=== PATIENT | female | born 1970 | race Caucasian/White ===

== ENCOUNTER → 2024-11-22 | Outpatient (CLI) | payer OTHER, SELFPAY ==
[2024-11-22 15:24] LABS: Absolute Lymphocyte Count 2.46 X10^3/uL (0.83-4.51); Absolute Neutrophil Count 6.3 X10^3/uL (2.0-7.7); Basophil# 0.06 X10^3/uL; Basophil% 0.6 % (0-1); Eosinophil# 0.19 X10^3/uL; Eosinophils% 1.9 % (0-5); Hematocrit 40.3 % (37-47); Hemoglobin 12.8 g/dL (12.0-15.0); Lymphocyte # 2.46 X10^3/ul (0.83-4.51); Mean Corp Hgb Conc 31.8 g/dL (32-36); Mean Corpuscular Hgb 28.8 pg (27.0-32.0); Mean Corpuscular Volume 90.6 fL (81-99); Mean Platelet Vol. 9.9 fl (6.2-12.0); Monocyte# 0.83 X10^3/uL; Monocyte% 8.4 % (0-10); NRBC Flagged by Analyzer 0 % (0-5); Neutrophil # 6.26 X10^3/uL (2.7-7.7); Neutrophil % 63.7 % (47-70); Platelet Count 353 K/mm3 (150-450); RBC Distribution Width CV 12.5 % (11.6-14.6); Red Blood Count 4.45 M/mm3 (4.2-5.4); White Blood Count 9.8 K/mm3 (4.4-11.0)
[2024-11-22 16:02] LABS: ALB/GLOB Ratio 1.2 RATIO (0.9-2.4); AST(SGOT) 17 U/L (15-37); Alanine Aminotransfer ALT/SGPT 40 U/L (13-56); Albumin, Serum 3.7 g/dL (3.2-5.0); Alkaline Phosphatase 69 U/L (45-117); Anion Gap 3 (5-15); BUN 14 mg/dL (7-18); BUN/Creat Ratio 18.8 RATIO (10-20); Calcium,Total 9.7 mg/dL (8.5-10.1); Chloride 109 mmol/L (98-107); Cholesterol 204 mg/dL (200); Creatinine, Serum 0.74 mg/dL (0.55-1.02); EST Glomerular Filtration Rate 86 mL/min (>60); Est Glom Filt Rate - Afr Amer 104 mL/min (>60); Globulin 3.1 g/dL (2.2-4.2); Glucose 108 mg/dL (74-106); High Density Lipoprotein 53 mg/dL; Potassium 3.9 mmol/L (3.5-5.1); Protein, Total 6.8 g/dL (6.4-8.2); Sodium Level 141 mmol/L (136-145); T4 Free Direct 0.83 ng/dL (0.76-1.46); Triglycerides 174 mg/dL; Very Low Density Lipoprotein 35 mg/dL (5-40)
== END | disposition home or self-care (01) ==
LOC: BIMLAB 13:42
PROVIDERS: PCP Internal Medicine; Referring Provider Internal Medicine; Visit Provider Internal Medicine
DX: Z00.00 Encounter for general adult medical examination without abnormal findings (principal); I10 Essential (primary) hypertension
CPT/HCPCS: 36415; 80053; 80061; 84439; 84443; 85025

== ENCOUNTER → 2024-12-02 | Outpatient (CLI) | payer OTHER, SELFPAY ==
--- NOTE | 2024-12-02 14:03 | STRESSREP_ITS ---
Stress Test Report Date: 12/02/2024 Procedure: Exercise tolerance test Indications: Abnormal EKG Consent: Per the patient Procedure: The patient exercised on a Sha protocol for 9 minutes achieving a peak heart rate of 153 bpm (93% predicted maximal heart rate) with a peak blood pressure 182/72 mmHg and a peak MET capacity of approximately 10.4 MET's. The baseline ECG demonstrated normal sinus rhythm. The peak exercise ECG demonstrated sinus tachycardia with about [address] depressions in the inferior and lateral leads. Later in the recovery phase there is about [address] depressions in the inferior and lateral leads.. [There were no cardiac dysrhythmias pretest, during exercise, or recovery]. The functional capacity was considered excellent for age. The patient had no complaint of chest discomfort during exercise or recovery. The examination was discontinued secondary to achieving target heart rate. Impression: 1. Technically adequate (percent predicted maximal heart rate greater than 85%) exercise tolerance test 2. Stress test is negative for exercise-induced chest pain. 3. Stress test test is borderline for exercise-induced EKG changes of ischemia. 4. Functional capacity is excellent for age This note was generated with Stereotax[employer] software. It may contain incorrect words, spelling, and punctuation that were not noted in checking the note before signing.
== END | disposition home or self-care (01) ==
LOC: CVS 11:27
PROVIDERS: PCP Internal Medicine; Referring Provider Internal Medicine; Visit Provider Internal Medicine
DX: R94.31 Abnormal electrocardiogram [ECG] [EKG] (principal)
CPT/HCPCS: 93017

== ENCOUNTER → 2024-12-09 | Outpatient (CLI) | payer OTHER, SELFPAY ==
--- NOTE | 2024-12-09 14:00 | ECHOD_ITS ---
Reason For Study: Abnormal Stress Test Procedure This was a 2D Doppler, Color Flow transthoracic echocardiogram. Exam performed in department. Left Ventricle Normal size and thickness. Mid cavitary false tendon noted. The left ventricular ejection fraction is 65 %. No evidence for diastolic dysfunction. Right Ventricle Normal right ventricle. Atria The left and right atria are normal. Mitral Valve Normal mitral valve. Tricuspid Valve Trivial tricuspid valve insufficiency. Normal pulmonary artery pressure. Aortic Valve Trisinus/trileaflet aortic valve. Pulmonic Valve The pulmonic valve is not well visualized. Great Vessels Normal sized aortic root. Pericardium/Pleural No pericardial effusion. MMode/2D Measurements & Calculations LVIDd: 4.3 cm IVSd: 0.99 cm Ao root diam: 3.0 cm LVIDs: 2.4 cm LVPWd: 0.90 cm RVDd: 3.7 cm FS: 43.4 % _ LAV(MOD-bp): 45.4 ml LVAd ap4: 25.2 cm2 SV(MOD-sp4): 39.8 ml LAV(MOD-bp) Indexed: 23.1 ml/m2 LVLd ap4: 7.4 cm SI(MOD-sp4): 20.2 ml/m2 LAV(MOD-sp2): 42.9 ml EDV(MOD-sp4): 68.6 ml LAV(MOD-sp4): 44.0 ml EDV(sp4-el): 73.3 ml LVAs ap4: 15.1 cm2 LVLs ap4: 6.5 cm ESV(MOD-sp4): 28.9 ml ESV(sp4-el): 29.7 ml EF(MOD-sp4): 58.0 % EF(sp4-el): 59.5 % _ SV(sp4-el): 43.6 ml LA A4 area: 17.0 cm2 LA dimension(2D): 3.8 cm _ RA A4 area: 14.8 cm2 TAPSE: 2.7 cm Time Measurements MV dec time: 0.32 sec Doppler Measurements & Calculations MV E max sudarshan: 61.8 cm/sec Lat Peak E' Sudarshan: 12.1 cm/sec Med Peak E' Sudrashan: 9.5 cm/sec MV A max sudarshan: 71.4 cm/sec E/E' lat: 5.1 E/E' med: 6.5 MV E/A: 0.87 _ MV V2 max: 85.4 cm/sec MV P1/2t max sudarshan: 76.5 cm/sec Ao V2 max: 155.6 cm/sec MV max P.9 mmHg MV P1/2t: 103.7 msec Ao max P.7 mmHg MV V2 mean: 46.9 cm/sec Ao V2 mean: 99.7 cm/sec MV mean P.0 mmHg MV dec slope: 216.0 cm/sec2 Ao mean P.7 mmHg MV V2 VTI: 24.3 cm MVA(P1/2t): 2.1 cm2 Ao V2 VTI: 29.0 cm AV (velocity ratio): 0.87 _ LV V1 max: 129.4 cm/sec TR max sudarshan: 250.0 cm/sec LV V1 max P.7 mmHg TR max P.0 mmHg LV V1 mean P.8 mmHg LV V1 mean: 92.0 cm/sec LV V1 VTI: 25.1 cm ECHO/Echo Complete Interpretation Summary The left ventricular ejection fraction is 65 %. Ordering Physician: Ewelina Morales Referring Physician: Rosalio Dickey Performed By: Kishore Gupta RCS
== END | disposition home or self-care (01) ==
PROVIDERS: PCP Internal Medicine; Referring Provider Internal Medicine Cardiovascular Disease; Visit Provider Internal Medicine Cardiovascular Disease
DX: R94.39 Abnormal result of other cardiovascular function study (principal)
CPT/HCPCS: 93306

== ENCOUNTER → 2024-12-27 | Outpatient (CLI) | payer OTHER, SELFPAY ==
--- NOTE | 2024-12-27 13:10 | CT_ITS ---
PROCEDURE: LIMITED CHEST CT CARDIAC ONLY with and without IV contrast. REASON FOR EXAM: Abnormal stress test. History of coronary artery disease. TECHNIQUE: Chest CT with intravenous contrast. CONTRAST: 68 mL of Isovue 370. COMPARISON: None. FINDINGS: Hardware: None. Lymph nodes: No mediastinal hilar or axillary lymphadenopathy. Heart and Vasculature: Normal heart size. No pericardial effusion. Atherosclerotic calcifications of the thoracic aorta. Pulmonary arteries are unremarkable. Lungs and Airways: The lungs are normally expanded and clear. Pleura: No pleural effusion. No pneumothorax. Upper Abdomen: Visualized portions of the upper abdominal viscera are unremarkable. Bones: Bone windows are unremarkable. CT/Limited Chest CT Cardiac Only IMPRESSION: No evidence of coronary artery calcification. One or more dose reduction techniques were used (e.g., Automated exposure contr ol, adjustment of the mA and/or kV according to patient size, use of iterative reconstruction technique). Reading Location: [id number]
[2024-12-27 13:23] VITALS: BP 145/79; PULSE 62; RESP 16; O2SAT 99; BMI 31.6
[2024-12-27 13:40] VITALS: PULSE 57
[2024-12-27] MEDS: Nitroglycerin SL (ED/IMG/CATH) 0.4 MG TABLET SL (13:40)
[2024-12-27 13:47] VITALS: BP 130/73; PULSE 64; RESP 16; O2SAT 97
--- NOTE | 2024-12-27 17:10 | CCTA.WCONT ---
CCTA w/Cont Coronary Arteries Date of Study:: 12/27/24 Abnormal stress test Coronary Calcium Scoring: High-resolution Computed Tomographic imaging of the chest was performed on [12/27/2024], with particular attention paid to the coronary arteries. Intravenous contrast agent was administered per protocol and images reconstructed and displayed. LEFT MAIN CORONARY ARTERY: Arose from the left coronary cusp with no significant stenosis noted in the coronary calcium score was 0. [] LEFT ANTERIOR DESCENDING CORONARY ARTERY: This arises from the left main coronary artery and because there was the apex of the left ventricle. No significant atherosclerotic plaquing was noted. Coronary calcium score was 0. [] LEFT CIRCUMFLEX CORONARY ARTERY: This arose from the left main coronary artery and coursed in the AV groove towards the base of the heart. No significant atherosclerotic plaquing or coronary calcification was noted. [] RIGHT CORONARY ARTERY: Dominant right coronary artery arising from the right coronary cusp with no significant atherosclerotic plaquing noted coronary calcium score of 0. [] THORACIC AORTA: Normal [] PULMONARY ARTERY: [] LEFT ATRIUM/APPENDAGE: [] MITRAL VALVE: Normal [] AORTIC VALVE: Trileaflet [] LEFT VENTRICLE: Normal [] CORONARY CALCIUM SCORE: Agatston score of [address] angiogram with no evidence of atherosclerotic plaquing or stenosis present. []
== END | disposition home or self-care (01) ==
LOC: CT 13:09
PROVIDERS: PCP Internal Medicine; Referring Provider Internal Medicine Cardiovascular Disease; Visit Provider Internal Medicine Cardiovascular Disease
DX: R94.39 Abnormal result of other cardiovascular function study (principal); R03.0 Elevated blood-pressure reading, without diagnosis of hypertension
CPT/HCPCS: 75571; 75574; 76380; Q9967

== ENCOUNTER → 2025-02-25 | Outpatient (CLI) | payer OTHER, SELFPAY ==
[2025-02-25 11:34] LABS: Bacteria 0 SEEN /hpf (None Seen); Mucous, Urine 0 SEEN /hpf (<or=2+)
[2025-02-25 12:31] LABS: Color, Urine Yellow (Yellow); Glucose, Dipstick Normal (Normal); Ketone-Dipstick Negative (Negative); Leukocyte Esterase-Dipstick 25 /ul (Negative); Nitrite-Dipstick Negative (Negative); Occult Blood-Urine 10 /ul (Negative); Protein-Dipstick 15 mg/dl (Negative); Urine Bilirubin Dipstick Negative (Negative); Urine Clarity Clear (Clear); Urine Urobilinogen Normal (Normal)
[2025-02-25 12:37] LABS: Red Blood Cells-Urine 0-5 SEEN /hpf (0-5); Squamous Epithelial Cells - UA 0-5 SEEN /hpf (5-10)
[2025-02-25 12:38] LABS: White Blood Cells 0-5 SEEN /hpf (0-5)
== END | disposition home or self-care (01) ==
LOC: LABSPEC 08:28
PROVIDERS: PCP Internal Medicine; Referring Provider Internal Medicine; Visit Provider Internal Medicine
DX: R30.0 Dysuria (principal)
CPT/HCPCS: 81001

== ENCOUNTER → 2025-06-04 | Outpatient (CLI) | payer OTHER, SELFPAY ==
[2025-06-04 16:45] LABS: Hematocrit 39.9 % (37-47); Hemoglobin 13.2 g/dL (12.0-15.0); Immature Granulocytes Count 0.040 X10^3/uL (0.0-0.0); Mean Corp Hgb Conc 33.1 g/dL (32-36); Mean Corpuscular Volume 89.9 fL (81-99); Mean Platelet Vol. 10.0 fl (6.2-12.0); NRBC Flagged by Analyzer 0 % (0-5); Platelet Count 315 K/mm3 (150-450); RBC Distribution Width CV 12.5 % (11.6-14.6); RBC Distribution Width SD 40.6 fl (35.1-43.9); Red Blood Count 4.44 M/mm3 (4.2-5.4); White Blood Count 9.5 K/mm3 (4.4-11.0)
[2025-06-04 17:51] LABS: AST(SGOT) 16 U/L (<=31); Alanine Aminotransfer ALT/SGPT 20 U/L (<=34); Albumin, Serum 4.3 g/dL (3.5-5.0); Alkaline Phosphatase 84 U/L (35-104); Anion Gap 12 (5-15); BUN 14 mg/dL (4-19); BUN/Creat Ratio 18.2 RATIO (10-20); Calcium,Total 10.2 mg/dL (7.6-11.0); Carbon Dioxide 25.5 mmol/L (21.0-32.0); Chloride 106 mmol/L (98-108); Globulin 2.8 g/dL (2.2-4.2); Glucose 89 mg/dL (70-99); Potassium 4.2 mmol/L (3.3-5.1)
== END | disposition home or self-care (01) ==
LOC: BIMLAB 14:51
PROVIDERS: PCP Internal Medicine; Referring Provider Internal Medicine; Visit Provider Internal Medicine
DX: I10 Essential (primary) hypertension (principal)
CPT/HCPCS: 36415; 80053; 85025

== ENCOUNTER → 2025-07-29 | Outpatient (CLI) | payer OTHER, SELFPAY ==
[2025-07-29 11:11] LABS: D-Dimer Quantitative (DVT/PE) 0.32 FEU/ug/m (0.27-0.49)
== END | disposition home or self-care (01) ==
LOC: LAB 10:07
PROVIDERS: PCP Internal Medicine; Referring Provider Student in an Organized Health Care Education/Training Program; Visit Provider Student in an Organized Health Care Education/Training Program
DX: M79.89 Other specified soft tissue disorders (principal); M79.605 Pain in left leg
CPT/HCPCS: 36415; 85379

== ENCOUNTER 2025-09-01 08:00 | Outpatient (RCR) | payer OTHER, SELFPAY ==
--- NOTE | 2025-08-04 09:01 | HP.PTEVAL_ITS ---
Patient's Visit Information Visit Information Visit Information: REZA PEPPER is a 54 year old F referred to Physical Therapy by Dr. Yamel Ware DC with a diagnosis of B Plantar Fascitis. Date of Evaluation: 08/04/25 Physical Therapist: DAVIAN Lawler Visit Plan Frequency: 2x /Week Duration: 2 Months Plan: 2X/ week for 8 weeks for rolling of the L gastroc and HS, stretching of the L gastroc and HS, and then strengthening of the L HS and gastroc with functional activities/strength and gait training with HEP HEP: towel gastroc stretch and green strap HS stretch Subjective Subjective: Pt has PF on the R side and now her calf on the L is so tight and she can not bend her knee and hard to stand up. The R PF is still there but not as bad and she thinks that she is favoring the R. She saw Dr Ware and she rolled her out and it hurt and it was better but not 100%. They did do a blood test and it ruled out a blood clot. Her Dr agreed this was a good step to do PT. The pain wakes her up only if she bends or straightens out her knee. She has not had any imaging on the L calf or knee. She reports no pain on the stairs. She has no N&T and no back pain. Pain R PF pain: Pain Intensity (Out of 10): 3 L calf pain: Pain Intensity (Out of 10): 6 Objective Objective: Gait: Walks with decrease stance time on the L LE and decrease fluid push off on the L . Walking heel and toe raises: Able to do but has increase pain walking with toes up on the L L Ankle AROM: -2 DF, 46 PF, 21 INV, 13 EV R Ankle AROM: DF 2 and PF 57, and INV 15 and EV 10 Ankle Strength: L Ankle: DF 9.9 and PF 10.7 and INV 6.7 and EV 5.6 R Ankle: DF 9.6 and PF 9.8 and 7.1 and EV 5.1 Tight B HS and Tight B gastroc but worse on the L. Palption: tender L gastroc muscle belly to palpation and rolling with stick. Pt responded well with stick roll out and stretches of gastroc with towel and HS with green strap Balance/Special Test Scores Lower Extremity Functional Score: 76 Goals Goal 1:: I HEP Goal Time Frame: 6-8 Weeks Goal 2:: Be able to walk with fluid heel to toe push off gait pattern on the L Goal Time Frame: 6-8 Weeks Goal 3:: Increase L ankle AROM (DF AROM) (at the time of the eval: L Ankle AROM: -2 DF, 46 PF, 21 INV, 13 EV R Ankle AROM: DF 2 and PF 57, and INV 15 and EV 10) Goal Time Frame: 6-8 Weeks Goal 4:: Be able to heel and toe raise on the L without pain or decreased ROM/strength Goal Time Frame: 6-8 Weeks Rehabilitation Potential Rehabilitation Potential: Good Anticipated Interventions Patient/Client Instruction: Educate patient on: Condition and Plan of Care For the Purpose of:: To decrease pain, To increase ROM, To improve nutrient delivery to tissue, To improve muscle performance and motor function, To improve ability to perform ADL's, To improve performance and independence with ADL's, To decrease level of supervision to perform tasks, To improve ability of physical actions for home/community/work/leisure, To improve gait and locomotor function s, To improve health of tissue, To decrease soft tissue restriction and To increase flexibility/ROM Therapeutic Exercise to Include: Strength training, Endurance training, Flex ibilty training, Gait and locomotor training, Neuromotor development, Passive ROM and Active ROM For the Purpose of:: To decrease pain, To increase ROM, To improve nutrient del chris to tissue, To improve muscle performance and motor function, To improve ability to perform ADL's, To increase tolerance to activity/condition/position, To improve performance and independence with ADL's, To decrease level of supervision to perform tasks, To improve ability of physical actions for home/community/work/leisure, To improve gait and locomotor functions, To improve health of tissue, To decrease soft tissue restriction, To increase flexibility/ROM, To improve balance and To improve safety with gait Functional Training to Include: Gait training For the Purpose of:: To improve gait and locomotor functions Manual Therapy Techniques to Include: Mobilization, Passive ROM and Soft tissue mobilization For the Purpose of:: To decrease pain, To decrease swelling/inflammation, To increase ROM, To improve nutrient delivery to tissue, To improve muscle performance and motor function, To improve ability to perform ADL's, To increase tolerance to activity/condition/position, To improve performance and independence with ADL's, To decrease level of supervision to perform tasks, To improve gait and locomotor functions, To improve health of tissue, To decrease soft tissue restriction and To increase flexibility/ROM Text: Thank you for the opportunity to evaluate your patient. For Medicare and Medicare HMO plans, please review the plan of care and approve it. It will need to be FAXED BACK to us at [phone] for Medicare purposes. For Medicare only, by signing this I certify the plan of care. Please let me know if there are questions or concerns regarding this plan of care. Physician Signature: Date:
--- NOTE | 2025-09-01 08:22 | HP.PTDCSUM ---
Discharge Summary D/C summary: It has been my pleasure to treat REZA PEPPER referred by Dr. Yamel Ware DC, with the diagnosis of B Plantar Fascitis for a total of 8 visit(s). Discharge Date: 09/01/25 Please see the following information for a summary of their discharge status. Subjective Subjective: She still has pain at the top of her calf. The pain is there if she is still for awhile and then goes to move. Sometimes pushing in will help it and then it goes away. She has been to the heart Dr and they checked her for a blood clot and it was negative. It wakes her up at night if she goes to move her leg on the L. Pt had pain while working it out but the pain does not go away. Pain R PF pain: Pain Intensity (Out of 10): 0 L calf pain: Pain Intensity (Out of 10): 2 Objective Objective/Function: She is able to heel and toe walk. She has some pain walking on her heels. L Ankle AROM: 12 DF, 46 PF, 26 INV, 13 EV Some tenderness to the back of the L knee...tender upper lateral gastroc on the L Gait: pt still has decreased Goals Goal 1:: I HEP Goal Progress: Goal Met Goal 2:: Be able to walk with fluid heel to toe push off gait pattern on the L Goal Progress: Not Progressing Goal 3:: Increase L ankle AROM (DF AROM) (at the time of the eval: L Ankle AROM: -2 DF, 46 PF, 21 INV, 13 EV R Ankle AROM: DF 2 and PF 57, and INV 15 and EV 10) Goal Progress: Goal Met Goal 4:: Be able to heel and toe raise on the L without pain or decreased ROM/strength Goal Progress: Progressing Plan Plan: DC PT back to for reassessment D/C Information Discharge Comments: DC PT back to as she feels she has not made any progress. d/c sentence: If there are questions or concerns regarding this patient's physical therapy, please feel free to call me at [phone]. Thank you for the referral of this patient. Sincerely, Flor Chong, MPT Balance/Gait/Functional tests Balance/Special Test Scores Lower Extremity Functional Score: 76
== END 2025-09-01 19:00 | disposition home or self-care (01) ==
LOC: PT 08:00
PROVIDERS: PCP Internal Medicine; Referring Provider Chiropractor; Visit Provider Chiropractor
DX: M72.2 Plantar fascial fibromatosis (principal)
CPT/HCPCS: 97110; 97140; 97161; 97530